=== PATIENT | male | born 1930 | race Caucasian/White ===

== ENCOUNTER 2016-06-13 03:52 | Emergency (ER) | payer OTHER ==
--- NOTE | ~2016-06-13 | US85 ---
[facility] RADIOLOGY TEXT RESULTS PATIENT: DRE SMITH LOCATION: SED : 29 UNIT #: [id number] AGE: [address]: Rohini Padgett MD SEX: M ORDER DR: [id number] [place] [id number] E MR#: [id number] Acc #: [id number] NAME: DRE SMITH : 1930 SEX: M STUDY DATE/TIME: 06/13/2016 8:22 UNIT: SED ROOM: STUDY DESCRIPTION: [facility] or [facility] Attending Physician: Rohini Padgett M.D. Ordering Physician: Álvaro Anthony M.D. Primary Care Physician: Teja Scott M.D. MEDICAL IMAGING REPORT This report is preliminary unless electronic signature is present. EXAM Venous Doppler ultrasound right leg 06/13/2016 HISTORY 85-year-old male in the ED complaining of right foot swelling beginning earlier today. Past history of DVT. Patient is on blood thinners. TECHNIQUE Venous ultrasound examination of the right lower extremity was performed using grayscale, spectral Doppler and color flow Doppler imaging. FINDINGS The examination is negative. There is no evidence of right lower extremity deep venous thrombus from the groin to the lower calf. Visualized greater saphenous vein is also patent. IMPRESSION Negative examination. No evidence of right lower extremity deep venous thrombosis. Dictated by... Aubrey Vieira M.D. THIS IS AN ELECTRONICALLY VERIFIED REPORT Aubrey Vieira M.D. at 06/13/2016 4:12 PM RGW/charis TD: 06/13/2016 11:54 JOB #: [id number] [facility] RADIOLOGY TEXT RESULTS PATIENT: DRE SMITH LOCATION: SED : 29 UNIT #: [id number] AGE: [address]: Rohini Padgett MD SEX: M ORDER DR: MEDICAL IMAGING REPORT
--- NOTE | ~2016-06-13 | CR181 ---
[facility]. [facility] A Service of [facility] RADIOLOGY TEXT RESULTS PATIENT: DRE SMITH LOCATION: SED : 29 UNIT #: [id number] AGE: [address]: Rohini Padgett MD SEX: M ORDER DR: [id number] [place] [id number] E MR#: [id number] Acc #: [id number] NAME: DRE SMITH : 1930 SEX: M STUDY DATE/TIME: 06/13/2016 04:59 UNIT: SED ROOM: STUDY DESCRIPTION: CR Lumbar Spine 2 or 3 Views Attending Physician: Rohini Padgett M.D. Ordering Physician: Álvaro Anthony M.D. Primary Care Physician: Teja Scott M.D. MEDICAL IMAGING REPORT This report is preliminary unless electronic signature is present. EXAM Lumbar spine, 06/13 at 04:59 hours INDICATION Low back pain that started tonight. No trauma. FINDINGS 3 views of the lumbar spine are compared with 02/26/2012. There has been interval placement of an IVC filter. There is extensive atherosclerotic disease. There are no compression fractures. There is multilevel degenerative disc disease, most severe at L5-S1. There is also bilateral L5-S1 facet arthropathy. Degenerative changes are slightly progressive in the interval. IMPRESSION No fracture or subluxation. There has been slight progression of degenerative disease in the lumbar spine as compared with the 2011 study. Findings are most severe at the L5-S1 level. Dictated by... Saad Laughlin Jr., M.D. THIS IS AN ELECTRONICALLY VERIFIED REPORT Saad Laughlin Jr., M.D. at 06/13/2016 9:17 PM ZAN/penelope TD: 06/13/2016 10:34 JOB #: [id number] MEDICAL IMAGING REPORT
--- NOTE | ~2016-06-13 | CR72 ---
[facility]. [facility] A Service of [facility] & [facility] RADIOLOGY TEXT RESULTS PATIENT: DRE SMITH LOCATION: SED : 29 UNIT #: [id number] AGE: [address]: Rohini Padgett MD SEX: M ORDER DR: [id number] [place] [id number] E MR#: [id number] Acc #: [id number] NAME: DRE SMITH : 1930 SEX: M STUDY DATE/TIME: 06/13/2016 04:59 UNIT: SED ROOM: STUDY DESCRIPTION: CR Chest Single View Portable Attending Physician: Rohini Padgett M.D. Ordering Physician: Álvaro Anthony M.D. Primary Care Physician: Teja Scott M.D. MEDICAL IMAGING REPORT This report is preliminary unless electronic signature is present. EXAM Portable chest 06/13 at 0459 INDICATIONS Shortness of air with back pain tonight. History of hypertension and coronary artery disease. FINDINGS AP portable chest compared with 04/02/2016. 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 The thoracic aorta is partially calcified. It is also tortuous and ectatic. This is stable. 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 Lungs otherwise are clear. No pneumothorax. There is a trace amount of right pleural fluid. IMPRESSION 1. Trace right pleural effusion. There is chronic scarring in the upper lobes but the lungs are otherwise clear. 2. Stable cardiomegaly. Stable appearance of a tortuous and ectatic thoracic aorta. 1. Dictated by... Saad Laughlin Jr., M.D. THIS IS AN ELECTRONICALLY VERIFIED REPORT Saad Laughlin Jr., M.D. at 06/13/2016 9:17 PM ZAN/anne TD: 06/13/2016 10:33 JOB #: [id number] MEDICAL IMAGING REPORT
--- NOTE | ~2016-06-13 | EKG ---
PATIENT: DRE SMITH UNIT #: [id number] Ventricular Rate: 68 BPM Atrial Rate: 68 BPM P-R Interval: 240 ms QRS Duration: 168 ms Q-T Interval: 430 ms QTC Calculation(Bezet): 457 ms Calculated R [place]: -37 degrees Calculated T [place]: 125 degrees Diagnosis Line: Sinus rhythm with 1st degree A-V block with PVC's Diagnosis Line: Left axis deviation Diagnosis Line: Left bundle branch block Diagnosis Line: Abnormal ECG Diagnosis Line: When compared with ECG of 10-SEP-2015 14:14, Diagnosis Line: PVC's present Diagnosis Line: Confirmed by NEREIDA FLORES MD ([id number]) on Diagnosis Line: 07/26/2016 7:02:04 AM INTERPRETING : JATIN
[~2016-06-13 03:52] MED LIST: ALBUTEROL MININEB; ALBUTEROL17 GM; ALBUTEROL17 GM INH; AMARYL; AMARYL2 MG PO; ASPIRIN81 M1; ASPIRIN81 M1 PO; ASPIRIN81 M2 PO; ATENOLOL25 MG PO; ATIVAN0.5 MG PO; AUGMENTIN400 MG; AUGMENTIN875 MG PO; BACTRIM DS TABL1 TA1 PO; BETIMOL5 ML; BYSTOLIC10 MG; BYSTOLIC5 MG; BYSTOLIC5 MG PO; CENTRUM SILVER; CENTRUM SILVER PO; CENTRUM SILVER1 EACH PO; CRESTOR; CRESTOR PO; CYMBALTA; CYMBALTA PO; DELTASONE20 MG PO; DICLOFENAC SOD2.5 ML; DID NOT BRING LIST; DIGOX0.125 MG; ECOTRIN325 MG PO; ELIQUIS5 MG; FISH OIL 1,0001 EACH PO; FLOMAX0.4 M1; FLOMAX0.4 M1 PO; FLONASE ALLERG9.9 ML; FLONASE16 GM; FOLIC ACID PO; FUROSEMIDE40 MG PO; GABAPENTIN600 MG PO; GARLIC1000 MG PO; GLUCOPHAGE500 MG PO; HYCODAN60 ML 5MG/ PO; IMDUR-ER60 M1 PO; IMDUR-ER60 MG PO; IMIPRAMINE HCL10 MG; INSULIN; K-DUR10 MEQ; K-DUR20 ME1 PO; KCL; LANTUS100 U/M1; LANTUS100 U/M1 SQ; LANTUS100 U/ML SUBQ; LASIX; LASIX PO; LISINOPRIL-HCTZ1 T19 PO; LORCET 10-6501 EACH PO; LORTAB 5/500 TA1 TA2 PO; LOTENSIN PO; LYRICA; LYRICA50 MG PO; LYRICA75 MG PO; METFORMIN; METFORMIN HCL500 M1; METFORMIN HCL500 M1 PO; MULTI-VITAMIN1 EAC1; MUPIROCIN15 GM; MYRBETRIQ50 MG PO; NEXIUM PO; NITROGLYCERIN0.4 MG; NITROSTAT0.4 MG SL; OMACOR; OMEGA 3 FISH OI1 CAP PO; OMEPRAZOLE20 M1; OXYCODONE-APAP1 EAC5 PO; PREDNISONE PO; PRILOSEC; PRILOSEC PO; PRILOSEC20 MG PO; RAMIPRIL2.5 M1 PO; ROBAXIN500 MG PO; SOLOSTAR INSULIN SUBQ; SYMBICORT; SYMBICORT INH; SYNTHROID; SYNTHROID0.05 MG; SYNTHROID0.05 MG PO; TRAVATAN Z5 ML; TYLENOL PM EX-S1 TA4; XARELTO15 MG PO; ZAROXYLYN; ZITHROMAX PO; [UNRECOGNIZED DRUG - MIXTURE]
[2016-06-13 04:34] LABS: URINE SOURCE CLEAN CATCH
[2016-06-13 04:35] LABS: BASOPHIL% 0.4 % (0-2.5); DIFF IND NO; EOSINOPHIL# 0.1 X10e3 (0-0.7); EOSINOPHIL% 1.2 % (0.0-7.0); HEMOGLOBIN 15.8 gm/dL (13.0-16.0); LYMPHOCYTE# 1.7 X10e3 (1.0-3.5); LYMPHOCYTE% 21.8 % (17.0-45.0); MEAN CELL VOLUME 90.1 FL (83-96); MEAN CORPUSCULAR HEMOGLOBIN 30.2 PG (28-34); MEAN CORPUSCULAR HGB CONC 33.5 g/dL (30-36); MEAN PLATELET VOLUME 9.1 FL (6.5-11.5); MONOCYTE# 0.8 X10e3 (0-1.0); MONOCYTE% 9.9 % (3.0-12.0); NEUTROPHIL# 5.3 X10e3 (1.5-7.1); NEUTROPHIL% 66.7 % (40-75); PLATELET COUNT 175 X10e3 (140-420); RED BLOOD COUNT 5.22 X10e (3.90-5.60); RED CELL DISTRIBUTION WIDTH 14.1 % (11.0-15.5); WHITE BLOOD COUNT 7.9 X10e3 (4.0-10.5)
[2016-06-13 04:36] LABS: URINE APPEARANCE CLEAR; URINE BILIRUBIN NEG (NEG); URINE BLOOD TRACE-INTACT (NEG); URINE COLOR YELLOW; URINE GLUCOSE NEG (NORM); URINE KETONE NEG (NEG); URINE LEUKOCYTE ESTERASE NEG (NEG); URINE NITRATE NEG (NEG); URINE PROTEIN TRACE (NEG); URINE SPECIFIC GRAVITY 1.015 (1.003-1.035); URINE UROBILINOGEN 0.2 MG/DL (NORM)
[2016-06-13 04:37] LABS: MICRO INDICATED? YES
[2016-06-13 04:38] LABS: CULTURE INDICATED? NO; URINE BACTERIA NEG (NEG); URINE SQUAMOUS EPITHELIAL CELL FEW /[HPF]; URINE WBC NEG /[HPF] (0-5)
[2016-06-13 04:49] LABS: BLOOD UREA NITROGEN 11 mg/dL (9-23); BUN/CREATININE RATIO 15.71; CALCIUM SERUM 9.4 mg/dL (8.4-10.2); CARBON DIOXIDE 28 mmol/L (22-31); CHLORIDE 101 mmol/L (100-111); CREATININE SERUM 0.7 mg/dL (0.6-1.4); GLOM FILT RATE Estimated ABOVE60 mL/min (>60); GLUCOSE FASTING 152 mg/dL (70-110); POTASSIUM 3.6 mmol/L (3.5-5.1); SODIUM 138 mmol/L (135-145)
[2016-06-13 04:51] LABS: INR 1.3; PROTHROMBIN TIME (PATIENT) 14.8 SECONDS (9.5-12.4)
[2016-06-13 04:55] LABS: POC - CKMB 1.9 ng/mL (0.0-7.9); POC - TROPONIN <0.05 ng/mL (<=0.05)
[2016-06-13 04:58] LABS: PARTIAL THROMBOPLASTIN TIME 27.3 SECONDS (25.6-38.1)
== END 2016-06-13 10:19 | disposition home or self-care (01) ==
LOC: SED 03:52
PROVIDERS: Emergency Medicine
DX: M79.604 Pain in right leg (principal); M54.5 Low back pain; I10 Essential (primary) hypertension; E78.5 Hyperlipidemia, unspecified; Z86.718 Personal history of other venous thrombosis and embolism; Z95.1 Presence of aortocoronary bypass graft; Z88.8 Allergy status to other drugs, medicaments and biological substances; Z79.899 Other long term (current) drug therapy; W19.XXXA Unspecified fall, initial encounter
CPT/HCPCS: 36415; 71010; 72100; 80048; 81003; 82553; 83874; 84484; 85025; 85379; 85610; 85730; 93005; 93971; 96365; 99284